=== PATIENT | male | born 1995 | race Two or more races ===

== ENCOUNTER 2016-10-15 08:29 | Day surgery (SDC) | payer MEDICAID ==
[~2016-10-15 08:29] MED LIST: ceFAZolin 2 GM in SODIUM CHLORIDE 0.9% 100 ML IVPB ONE
[2016-10-15] MEDS ORDERED: ONDANSETRON 4 MG/2 ML VIAL IVP ONE (08:45)
[2016-10-15] MEDS ORDERED: LACTATED RINGERS 1,000 ML IV SCH (08:45)
[2016-10-15] MEDS ORDERED: MIDAZOLAM 2 MG/2 ML VIAL IV PRN (08:45)
[2016-10-15] MEDS ORDERED: DEXAMETHASONE SOD PHOSPHATE 10 MG/ML 1 ML VIAL IV ONE (08:45)
[2016-10-15] MEDS ORDERED: LIDOCAINE 1% 20 ML VIAL (10MG/ML) FOR IV START SQ ONE (08:55)
[2016-10-15] MEDS ORDERED: ceFAZolin 1,000 MG VIAL ONE (09:26)
[2016-10-15] MEDS ORDERED: fentaNYL (PF) 50 MCG/ML 2 ML AMP ONE (09:26)
[2016-10-15] MEDS ORDERED: PROPOFOL 10 MG/ML 20 ML VIAL IV ONE (09:26)
[2016-10-15] MEDS ORDERED: SODIUM CHLORIDE 0.9% 100 ML BAG ONE (09:26)
[2016-10-15] MEDS ORDERED: MIDAZOLAM 2 MG/2 ML VIAL ONE (09:26)
[2016-10-15 10:12] VITALS: TEMP 97.2
--- NOTE | 2016-10-15 10:13 | P.OP ---
Date of Procedure: 10/15/16 Preoperative Diagnosis: Bulbous Urethral Stricture Postoperative Diagnosis: Same Procedure(s) Performed: Cystoscopy, Direct Visual Internal Ureterotomy (DVIU) Anesthesia: DAVIN Surgeon: Miguel Bronson Estimated Blood Loss (ml): 5 IV fluids (ml): 600 Pathology: none sent Condition: stable Disposition: PACU Indications for Procedure: He is a 21-year-old male with a several year history of obstructive voiding symptoms. Physical examination is unremarkable. The postvoid residual is 100 cc. Cystoscopy confirms the presence of a bulbous urethral stricture. I reviewed alternative treatment options with him in detail. I explained that a urethroplasty is the most definitive way to treat a stricture, and I suggested that a retrograde urethrogram be performed to better delineate the stricture. However, he would be unable to be off of work long enough to allow recovery from a urethroplasty. In view of this, he has elected to undergo a DVIU. He is aware of the risk of a recurrent stricture, and the fact that a DVIU can lengthen the stricture. Operative Findings: Bulbous urethral stricture, measuring approximately 2 cm in length. Description of Procedure: The patient was taken to the operating room and placed in the dorsolithotomy position, with his legs supported in Constantine stirrups. The external genitalia was prepped and draped sterilely. The 0 lens was used to advance the visual urethrotome into the urethra. A stricture was encountered within the bulbous urethra, measuring approximately 6 Gambian in caliber. The length of the stricture was approximately 2 cm. Using the straight blade, the stricture was incised at the 12 o'clock position. The incision was carried through the full- thickness of the stricture. It was then possible to advance the visual urethrotome into the bladder. Cystoscopy was performed. The 30 lens was used to introduce the 19-Gambian start cystoscopic sheath through the urethra and into the bladder under direct vision. The prostate revealed a bilobar configuration. The bladder was examined in its entirety. Both ureteral orifices were of normal anatomic location and configuration, and clear urine effluxed from both. No tumors or foreign bodies were seen. The cystoscope was removed, and an 18-Gambian Alcocer catheter was placed. The return was clear. The patient tolerated the procedure well was taken to the recovery room in stable condition.
[2016-10-15] MEDS ORDERED: LACTATED RINGERS 1,000 ML IV ONE (10:41)
[2016-10-15] MEDS: HYDROmorphone 1 MG/ML 1 ML SYRINGE IVP PRN ×2 (10:49→10:56)
[2016-10-15] MEDS ORDERED: KETOROLAC 30 MG/ML 1 ML VIAL IVP ONE (10:52)
[2016-10-15 11:37] VITALS: RESP 18
[2016-10-15 11:57] VITALS: BP 115/74; PULSE 58
== END 2016-10-15 12:20 | disposition home or self-care (01) ==
LOC: OR 08:29
PROVIDERS: ATTEND Urology
DX: N35.9 Urethral stricture, unspecified (principal); Z91.030 Bee allergy status; Z91.048 Other nonmedicinal substance allergy status; Z88.2 Allergy status to sulfonamides; Z87.891 Personal history of nicotine dependence; Z80.42 Family history of malignant neoplasm of prostate
CPT/HCPCS: 87086; 52276; J2250; J1100; J2405; J0690; J3010; J1885; J1170; J2704

== ENCOUNTER 2016-11-27 14:44 | Emergency (ER) | payer MEDICAID ==
[2016-11-27 14:49] VITALS: BP 132/86; PULSE 66; RESP 17; TEMP 99
--- NOTE | 2016-11-27 15:39 | ED ---
General Adult HPI - General Chief complaint: Wound/Laceration Stated complaint: finger lac Time Seen by Provider: 11/27/16 15:34 Source: patient, RN notes reviewed Mode of arrival: ambulatory Limitations: no limitations - History of Present Illness Initial comments: Is a 21-year-old male presents with a laceration to the right fifth digit. Patient states around 11 AM this morning he was washing the dishes and cut his hand on a broken plate. Patient is up-to-date on his tetanus shot. Patient has no trouble moving the involved finger. Patient denies any numbness/ weakness or tingling. Patient is not on any anticoagulants. Patient denies any recent fever, chills, shortness breath, chest pain, abdominal pain, nausea/ vomiting/diarrhea, back pain, hematuria, headache, or visual changes, or any other complaints. - Related Data Previous Rx's Medication Instructions Recorded Cephalexin [Keflex] 500 mg PO Q12HR 5 Days 11/27/16 Allergies Allergy/AdvReac Type Severity Reaction Status Date / Time Sulfa (Sulfonamide Allergy Unknown Verified 11/27/16 14:46 Antibiotics) venom-honey bee Allergy Anaphylaxis Verified 11/27/16 14:46 [bee venom (honey bee)] Review of Systems ROS Statement: Those systems with pertinent positive or pertinent negative responses have been documented in the HPI. ROS Other: All systems not noted in ROS Statement are negative. Past Medical History Additional Past Medical History / Comment(s): anemic History of Any Multi-Drug Resistant Organisms: None Reported Past Surgical History: No Surgical Hx Reported Past Psychological History: No Psychological Hx Reported Smoking Status: Never smoker Past Alcohol Use History: None Reported Past Drug Use History: None Reported General Exam - General Exam Comments Initial Comments: General: The patient is awake and alert, in no distress, and does not appear acutely ill. Neck: The neck is supple, there is no tenderness or JVD. Cardiovascular: There is a regular rate and rhythm. No murmur, rub or gallop is appreciated. Respiratory: Lungs are clear to auscultation, respirations are non-labored, breath sounds are equal. No wheezes, stridor, rales, or rhonchi. Musculoskeletal: There is an approximately 2.5 cm laceration to the lateral aspect of the fifth digit of the right hand. There is no active bleeding, swelling or ecchymosis. This area is tender to palpation but patient has full range of motion motion, strength 5/5 and Sensation intact. Radial pulses are 2 + bilaterally. Capillary refill is normal at less than 2 seconds. Neurological: A&O x 3. CN II-XII intact, There are no obvious motor or sensory deficits. Coordination appears grossly intact. Speech is normal. Skin: There is an approximately 2.5; laceration to the lateral aspect of the fifth digit of the right hand. Skin is warm and dry. Psychiatric: Normal mood and affect. Limitations: no limitations Course Vital Signs 11/27/16 14:46 Temperature 99.0 F Pulse Rate 66 Respiratory 17 Rate Blood Pressure 132/86 O2 Sat by Pulse 100 Oximetry Procedures - Procedures Initial comment: The skin was anesthetized with 1% lidocaine. The laceration was then cleansed and irrigated with normal saline. The wound was inspected, and there was no evidence of injury to deep structures. No foreign body was noted in the wound. A total of 9 skin sutures were placed utilizing 5-0 Ethilon. Laceration is approx 2.5 cm Medical Decision Making - Medical Decision Making This is a 21-year-old male presents with a laceration to the right hand since 11 AM. On physical exam There is an approximately 2.5 cm laceration to the lateral aspect of the fifth digit of the right hand. There is no active bleeding, swelling or ecchymosis. This area is tender to palpation but patient has full range of motion motion, strength 5/5 and Sensation intact. Radial pulses are 2+ bilaterally. Capillary refill is normal at less than 2 seconds. An x-ray of the right hand was done and reviewed showing: There is no acute fracture dislocation of the right hand. Reported by Dr. Velasquez. Patient is up- to-date on his tetanus shot. The skin was anesthetized with 1% lidocaine. The laceration was then cleansed and irrigated with normal saline. The wound was inspected, and there was no evidence of injury to deep structures. No foreign body was noted in the wound. A total of 9 skin sutures were placed utilizing 5-0 Ethilon. Laceration is approx 2.5 cm. I discussed that sutures need to be removed in 8-10 days. I discussed that rinsing and showering are okay but to avoid submerging the wound in water. Discussed [id number] Tylenol and Motrin as needed for any pain. I discussed use of topical Neosporin. I discussed return parameters and signs of infection. Discussed that patient should finish entire course of antibiotics. Discussed that patient should use finger splint while at work to protect the healing laceration. Discussed keeping the laceration covered at work. Discussed that patient should follow up with PCP in one to 2 days or return to the [facility] for any worsening symptoms or for any further concerns. Patient was receptive to this plan and patient will be discharged home. Disposition Clinical Impression: Laceration Disposition: HOME SELF-CARE Condition: Good Instructions: Care For Your Stitches (ED), Laceration (ED) Additional Instructions: Sutures need to be removed in 8-10 days. Rinsing and showering are okay but avoid submerging the wound in water. Please use [id number] Tylenol and Motrin as needed for any pain. Please use finger splint to protect the wound. Please keep wound covered completely at work. May use Neosporin to the area. Please finish the entire course of antibiotics. I discussed return parameters and signs of infection. Prescriptions: Cephalexin [Keflex] 500 mg PO Q12HR 5 Days Referrals: None,Stated [Primary Care Provider] - 1-2 days John Rowan MD [REFERRING] - 1-2 days Madina Cabral MD [STAFF PHYSICIAN] - 1-2 days Time of Disposition: 16:25
--- NOTE | 2016-11-27 15:50 | XR ---
EXAMINATION TYPE: XR hand complete RT DATE OF EXAM: 11/27/2016 3:45 PM CLINICAL HISTORY: Right hand laceration injury fifth finger with pain. TECHNIQUE: Frontal, lateral and oblique images of the right hand are obtained. COMPARISON: None. FINDINGS: There is no acute fracture/dislocation evident in the right hand. The joint spaces in the right hand appear within normal limits. The overlying soft tissue appears unremarkable without radio dense foreign body identified. Lucency consistent with laceration is seen along the ulnar dorsal aspe ct level of distal fifth proximal phalanx. IMPRESSION: There is no acute fracture or dislocation in the right hand.
[2016-11-27] MEDS ORDERED: IBUPROFEN 400 MG TAB PO STA (16:21)
== END 2016-11-27 16:37 | disposition home or self-care (01) ==
LOC: EC 14:44
DX: S61.216A Laceration without foreign body of right little finger without damage to nail, initial encounter (principal); W25.XXXA Contact with sharp glass, initial encounter; Y93.G1 Activity, food preparation and clean up; Z88.2 Allergy status to sulfonamides
CPT/HCPCS: 12001; 99283

== ENCOUNTER 2020-04-17 03:33 | Inpatient (IN) | payer MEDICAID, OTHER ==
[2020-04-17] MEDS ORDERED: diphenhydrAMINE 50 MG/ML 1 ML VIAL IM STA (03:45)
[2020-04-17] MEDS ORDERED: LORazepam 2 MG/ML INJ IM STA (03:45)
[2020-04-17] MEDS ORDERED: HALOPERIDOL LACTATE 5 MG/ML 1 ML VIAL IM STA (03:45)
--- NOTE | 2020-04-17 03:56 | ED ---
General Adult HPI <John Gamez - Last Filed: 04/17/20 13:04> - General Source: patient Mode of arrival: ambulatory Limitations: no limitations <Missy Lopez - Last Filed: 04/17/20 22:04> - General Chief complaint: Psychiatric Symptoms Stated complaint: Mental Health Time Seen by Provider: 04/17/20 03:42 - History of Present Illness Initial comments: Isidro is a previously healthy 24-year-old male who is brought to the ER today by his brother for evaluation of acute psychosis. Patient denies any medical history Brother bedside denies any medical history. Patient reports that 3 days ago he was at a festival and somebody offered him what he believed to be Shayy however brothers concerned he may be LSD or amphetamines. He reports his brother has not slept in 3 days he's been agitated he is very paranoid. The patient believes that his brother is though he is in the room talking to him. He believes somebody is out to kill him. (Missy Lopez) - Related Data Home Medications Medication Instructions Recorded Confirmed No Known Home Medications 04/17/20 04/17/20 Allergies Allergy/AdvReac Type Severity Reaction Status Date / Time Sulfa (Sulfonamide Allergy Unknown Verified 04/17/20 12:23 Antibiotics) venom-honey bee Allergy Anaphylaxis Verified 04/17/20 12:23 [bee venom (honey bee)] Review of Systems ROS Other: All systems not noted in ROS Statement are negative. <John Gamez - Last Filed: 04/17/20 13:04> ROS Other: All systems not noted in ROS Statement are negative. <Missy Lopez - Last Filed: 04/17/20 22:04> ROS Statement: Those systems with pertinent positive or pertinent negative responses have been documented in the HPI. Past Medical History Additional Past Medical History / Comment(s): anemic History of Any Multi-Drug Resistant Organisms: None Reported Past Surgical History: No Surgical Hx Reported Past Psychological History: No Psychological Hx Reported Smoking Status: Never smoker Past Alcohol Use History: None Reported Past Drug Use History: None Reported - Past Family History Mother Family Medical History: Diabetes Mellitus <Missy Lopez - Last Filed: 04/17/20 22:04> General Exam Limitations: no limitations <Missy Lopez - Last Filed: 04/17/20 22:04> - General Exam Comments Initial Comments: Physical Exam GENERAL: Paranoid, pacing the department HENT: Normocephalic, Atraumatic. EYES: PERRL, EOMI PULMONARY: Unlabored respirations. CARDIOVASCULAR: RRR Warm and well perfused extremities ABDOMEN: Non-distended SKIN: No rashes or bruising : Deferred NEUROLOGIC: Alert, oriented to self only Pressured speech MUSCULOSKELETAL: Moving all extremities with no apparent injury PSYCHIATRIC: Acutely psychotic Paranoid (Missy Lopez) Course Vital Signs 04/17/20 04/17/20 04/17/20 03:36 06:17 13:00 Temperature 98.3 F 98.0 F Pulse Rate 105 H 58 L 66 Respiratory 18 16 18 Rate Blood Pressure 168/85 124/72 O2 Sat by Pulse 97 98 98 Oximetry Medical Decision Making - Lab Data Result diagrams: 04/17/20 04:38 04/17/20 04:38 <John Gamez - Last Filed: 04/17/20 13:04> - Lab Data Result diagrams: 04/17/20 04:38 04/17/20 04:38 <Missy Lopez - Last Filed: 04/17/20 22:04> - Medical Decision Making Patient evaluate by EPS. Because recommends inpatient admission. Certification completed. Patient admitted to inpatient psychiatry. (John Gamez) - Lab Data Lab Results 04/17/20 04/17/20 04/17/20 Range/Units 04:38 04:38 09:35 WBC 10.2 (3.8-10.6) k/uL RBC 4.60 (4.30-5.90) m/uL Hgb 13.3 (13.0-17.5) gm/dL Hct 39.7 (39.0-53.0) % MCV 86.3 (80.0-100.0) fL MCH 28.9 (25.0-35.0) pg MCHC 33.5 (31.0-37.0) g/dL RDW 13.0 (11.5-15.5) % Plt Count 211 (150-450) k/uL Neutrophils % 83 % Lymphocytes % 8 % Monocytes % 6 % Eosinophils % 1 % Basophils % 0 % Neutrophils # 8.5 H (1.3-7.7) k/uL Lymphocytes # 0.9 L (1.0-4.8) k/uL Monocytes # 0.6 (0-1.0) k/uL Eosinophils # 0.1 (0-0.7) k/uL Basophils # 0.0 (0-0.2) k/uL Sodium 137 (137-145) mmol/L Potassium 3.8 (3.5-5.1) mmol/L Chloride 104 (98-107) mmol/L Carbon Dioxide 24 (22-30) mmol/L Anion Gap 9 mmol/L BUN 10 (9-20) mg/dL Creatinine 1.14 (0.66-1.25) mg/dL Est GFR (CKD-EPI)AfAm >90 (>60 ml/min/1.73 sqM) Est GFR (CKD-EPI)NonAf >90 (>60 ml/min/1.73 sqM) Glucose 98 (74-99) mg/dL Calcium 9.5 (8.4-10.2) mg/dL Total Bilirubin 0.7 (0.2-1.3) mg/dL AST 52 (17-59) U/L ALT 39 (4-49) U/L Alkaline Phosphatase 49 (38-126) U/L Total Protein 7.1 (6.3-8.2) g/dL Albumin 4.6 (3.5-5.0) g/dL Salicylates <1.0 mg/dL Urine Opiates Screen Not Detected (NotDetected) Ur Oxycodone Screen Not Detected (NotDetected) Urine Methadone Screen Not Detected (NotDetected) Ur Propoxyphene Screen Not Detected (NotDetected) Acetaminophen <10.0 ug/mL Ur Barbiturates Screen Not Detected (NotDetected) U Tricyclic Antidepress Not Detected (NotDetected) Ur Phencyclidine Scrn Not Detected (NotDetected) Ur Amphetamines Screen Not Detected (NotDetected) U Methamphetamines Scrn Not Detected (NotDetected) U Benzodiazepines Scrn Not Detected (NotDetected) Urine Cocaine Screen Not Detected (NotDetected) U Marijuana (THC) Screen Detected H (NotDetected) Serum Alcohol <10 mg/dL Disposition Decision Time: 13:04 <John Gamez - Last Filed: 04/17/20 13:04> <Missy Lopez - Last Filed: 04/17/20 22:04> Clinical Impression: Psychosis Disposition: ADMITTED IP TO THIS HOSP Condition: Fair
[2020-04-17 04:47] LABS: Basophils % (A) 0 %; Eosinophils % (A) 1 %; HCT 39.7 % (39.0-53.0); HGB 13.3 gm/dL (13.0-17.5); Lymphocytes % (A) 8 %; MCH 28.9 pg (25.0-35.0); MCHC 33.5 g/dL (31.0-37.0); MCV 86.3 fL (80.0-100.0); Mean Platelet Volume 6.8; Monocytes % (A) 6 %; Neutrophils % (A) 83 %; Platelet Count 211 k/uL (150-450); WBC 10.2 k/uL (3.8-10.6)
[2020-04-17 04:48] LABS: Eosinophils # (A) 0.1 k/uL (0-0.7); Lymphocytes # (A) 0.9 k/uL (1.0-4.8); Monocytes # (A) 0.6 k/uL (0-1.0); Neutrophils # (A) 8.5 k/uL (1.3-7.7)
[2020-04-17 04:58] LABS: ALT 39 U/L (4-49); AST 52 U/L (17-59); Acetaminophen <10.0 ug/mL; African American GFR (CKD) >90 (>60 ml/min/1.73 sqM); Albumin 4.6 g/dL (3.5-5.0); Alcohol <10 mg/dL; Alkaline Phosphatase 49 U/L (38-126); Anion Gap 9 mmol/L; Blood Urea Nitrogen 10 mg/dL (9-20); Calcium 9.5 mg/dL (8.4-10.2); Carbon Dioxide 24 mmol/L (22-30); Chloride 104 mmol/L (98-107); Glucose 98 mg/dL (74-99); Non-African American GFR(CKD) >90 (>60 ml/min/1.73 sqM); Potassium 3.8 mmol/L (3.5-5.1); Salicylate <1.0 mg/dL; Sodium 137 mmol/L (137-145); Total Bilirubin 0.7 mg/dL (0.2-1.3); Total Protein 7.1 g/dL (6.3-8.2)
[2020-04-17] MEDS ORDERED: MAG HYDROX/AL HYDROX/SIMETH 30 ML CUP PO PRN (13:24)
[2020-04-17] MEDS ORDERED: ACETAMINOPHEN TAB 325 MG TAB ONE (13:24)
[2020-04-17] MEDS ORDERED: LORazepam 1 MG TAB ONE (13:24)
[2020-04-17] MEDS ORDERED: MAG HYDROX/AL HYDROX/SIMETH 30 ML CUP ONE (13:24)
[2020-04-17] MEDS ORDERED: ZIPRASIDONE 20 MG VIAL IM PRN (13:24)
[2020-04-17] MEDS ORDERED: MAGNESIUM HYDROXIDE 2,400 MG/10 ML CUP ONE (13:24)
[2020-04-17] MEDS ORDERED: ACETAMINOPHEN TAB 325 MG TAB PO PRN (13:24)
[2020-04-17] MEDS ORDERED: ZIPRASIDONE 20 MG VIAL IM ONE (13:24)
[2020-04-17] MEDS ORDERED: LORazepam 2 MG/ML INJ ONE (13:24)
[2020-04-17] MEDS ORDERED: MAGNESIUM HYDROXIDE 2,400 MG/10 ML CUP PO PRN (13:24)
[2020-04-17] MEDS ORDERED: LORazepam 2 MG/ML INJ IM PRN (13:26)
[2020-04-17 14:16] LABS: Amphetamine Screen,Urine Not Detected (NotDetected); Barbiturate Screen,Urine Not Detected (NotDetected); Benzodiazepines Screen,Urine Not Detected (NotDetected); Cocaine Screen,Urine Not Detected (NotDetected); Methadone Screen, Urine Not Detected (NotDetected); Opiate Screen,Urine Not Detected (NotDetected); Oxycodone Screen, Urine Not Detected (NotDetected); Phencyclidine Screen,Urine Not Detected (NotDetected); Tricyclic Antidepressant,Urine Not Detected (NotDetected); Urn Cannabinoid Scrn Detected (NotDetected)
--- NOTE | 2020-04-17 20:39 | P.HPMEDMHU ---
History of Present Illness H&P Date: 04/17/20 Chief Complaint: hallucinations Patient is a 24-year-old -[place]ish male with a past medical history of urethral strictures status post surgical procedure in 2016, prior anemia, and prior low platelets who presented to the hospital at direction of his brother secondary to hallucinations and paranoia. Patient seen and examined. He states he is feeling fine currently. He denies any chest pain, shortness breath, nausea, or vomiting. He is concerned he might have a urinary tract infection if he has a history of them in the past and he believes they may be playing into his mental fogginess-he states he always has some dribbling and difficulty with stream secondary to his urethral stricture. He denies any current unusual dysuria, cloudy urine, or malodorous urine. He is unsure how he got the bruise over his left eye. He does state that he uses marijuana daily and doesn't take any other street drugs on purpose. However on his petition his brother stated he took what they thought was probably but may have been LSD. Review of Systems Pertinent positives and negatives as discussed in HPI, a complete review of systems was performed and all other systems are negative. Past Medical History Additional Past Medical History / Comment(s): Urethral stricture, history of a nemia, history of thrombocytopenia History of Any Multi-Drug Resistant Organisms: None Reported Additional Past Surgical History / Comment(s): Urethral stricture repair Past Psychological History: No Psychological Hx Reported Smoking Status: Current every day smoker Past Alcohol Use History: Occasional Past Drug Use History: Marijuana - Past Family History Mother Family Medical History: Diabetes Mellitus Medications and Allergies Home Medications Medication Instructions Recorded Confirmed Type No Known Home Medications 04/17/20 04/17/20 History Allergies Allergy/AdvReac Type Severity Reaction Status Date / Time Sulfa (Sulfonamide Allergy Unknown Verified 04/17/20 12:23 Antibiotics) venom-honey bee Allergy Anaphylaxis Verified 04/17/20 12:23 [bee venom (honey bee)] Physical Exam Osteopathic Statement: *. No significant issues noted on an osteopathic structural exam other than those noted in the History and Physical/Consult. Vitals: Vital Signs Temp Pulse Pulse Resp BP BP Pulse Ox 04/17/20 14:18 98.4 F 64 16 142/81 100 04/17/20 13:00 98.0 F 66 18 124/72 98 04/17/20 06:17 58 L 16 98 04/17/20 03:36 98.3 F 105 H 18 168/85 97 Intake and Output 04/17/20 04/17/20 04/17/20 06:59 14:59 22:59 Other: Weight 77.111 kg 83.325 kg General: non toxic, no distress, appears at stated age, normal weight Derm: no unusual rashes/lesions ecchymoses over left orbit, warm, dry Head: atraumatic, normocephalic, symmetric Eyes: EOMI, no lid lag, anicteric sclera, pupils equal round reactive to light ENT: Nose and ears atraumatic, no thrush, no pharyngeal erythema Neck: No thyromegaly, no cervical lymphadenopathy, trachea midline, supple Mouth: no lip lesion, mucus membranes moist Cardiovascular: S1S2 reg, no murmur, positive posterior tibial pulse bilateral, no edema, capillary refill less than 2 seconds Lungs: CTA bilateral, no rhonchi, no rales , no accessory muscle use Abdominal: soft, nontender to palpation, no guarding, no appreciable organomegaly, normal bowel sounds Ext: no gross muscle atrophy, muscle strength 5 out of 5 in all 4 extremities grossly, no contractures, Neuro: CN II-XI grossly intact, light touch intact all 4 extremities, finger to nose within normal limits, Psych: Alert, oriented, appropriate affect Cranial Nerve Examination - Cranial Nerves Cranial Nerve II- Optic: Intact Cranial Nerve III- Oculomotor: Intact Cranial Nerve IV- Trochlear: Intact Cranial Nerve V- Trigeminal: Intact Cranial Nerve - Abducens: Intact Cranial Nerve VII- Facial: Intact Cranial Nerve VIII- Auditory: Intact Cranial Nerve IX- Glossopharyngeal: Intact Cranial Nerve X- Vagus: Intact Cranial Nerve XI- Accessory: Intact Cranial Nerve XII- Hypoglossal: Intact Results CBC & Chem 7: 04/17/20 04:38 04/17/20 04:38 Labs: Abnormal Lab Results - Last 24 Hours (Table) 04/17/20 04/17/20 Range/Units 04:38 09:35 Neutrophils # 8.5 H (1.3-7.7) k/uL Lymphocytes # 0.9 L (1.0-4.8) k/uL U Marijuana (THC) Screen Detected H (NotDetected) Assessment and Plan Assessment: Change in urine stream, concern for recurrence of urethral stricture -Check urinalysis -Outpatient referrals [facility] to see patient regarding insurance -If continues consider urology consult Tobacco abuse -Cessation -Nicotine replacement THC abuse - cessation Paranoia - your psych management
[2020-04-18] MEDS: NICOTINE 14MG/24HR PATCH TRANSDERM SCH ×2 (06:59→09:14)
[2020-04-18 07:39] LABS: Glucose,Whole Blood 85 mg/dL (75-99)
[2020-04-18] MEDS: ARIPiprazole 5 MG TAB PO SCH (10:26)
--- NOTE | 2020-04-18 15:21 | HP ---
HISTORY AND PHYSICAL DATE OF SERVICE: 04/18/2020 IDENTIFYING INFORMATION: Patient 24-year-old , single male who is currently living with his mother and older brother. Patient is unemployed. HISTORY OF PRESENT ILLNESS: I reviewed the medical record and I did interview the patient. Patient was cooperative with the interview. Patient stated that he has been confused for the last 4 days and "I was trying to meditate and trying to figure out my life for the last couple of days." He stated that yesterday he was so confused to the point that he thinks that he would try to kill himself 50 times. Also, he said that he was falling down he has black eye on his left eye. Today he denied any auditory hallucination, but he stated that he is very paranoid and suspicious and thinking that there is people threatening his phone. This patient talked in detail about his ability to do business. 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 Patient stated that he did use LSD last weekend and since then he has been more confused than usual. Patient denied that he has any suicidal ideation at this moment. Also, he denied any suicide intent or plan at this moment. Patient was very vague when I did ask him how did he try to kill himself more than 50 times over the last couple of days. He said "it is ." PAST PSYCHIATRIC HISTORY: Patient denied any past psychiatric hospitalization or outpatient therapy. PAST MEDICAL HISTORY: Patient had surgery for urethral stricture in 2016. Patient has history of anemia, history of thrombocytopenia. His urine drug screen at the arrival of the ER was positive for marijuana. ALLERGY: He is allergic to SULFA and VENOM HONEY BEE. SUBSTANCE USE HISTORY: 1. LSD. He started using LSD at age 17 and according to him at least once a week "to be able to produce and play music." His last use was last weekend. 2. Alcohol. He started drinking at age 17. He was very vague about how much he has been consuming. According to him, he can drink up to a fifth of whiskey. He last used it was last weekend. He had 6 beers. He denied any history of withdrawal with seizure. 3. Nicotine. He does smoke between 5-6 cigarettes a day. FAMILY HISTORY OF PSYCHIATRIC AND SUBSTANCE ABUSE HISTORY: Patient denied. SOCIAL HISTORY: The patient was born in [place]. He has 1 older brother and 2 half siblings. He moved from [place] to [place] at age 6 and he lived in [place] until age 13 and then he moved to [place] with his mother and his brother, graduated from high school. 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 Currently, he is not in any relationship and he does not have any children. He denies any history. He denied any legal problems. MENTAL STATUS EXAMINATION: Patient appears his stated age. He was cooperative. He put his shaffer on his head throughout the interview. He has good eye contact. He was sitting without any agitation at times, smiling and laughing. His speech was spontaneous, increase in productivity with some looseness of association. Mood and affect, he stated that his mood is "I am very anxious, trying to figure it out why I lost a couple of days in my life." Affect is inappropriate at times. Patient denied having any suicidal or homicidal ideation, intent, or plan. Today, patient denied any visual or auditory hallucination. There is no evidence of delusional thought content, grandiose delusion, paranoia, suspicious that someone is tracking his phone. His thought process is tangential. MEMORY AND CONCENTRATION: He was alert, oriented x3. His memory is grossly intact. JUDGMENT AND INSIGHT: Poor, impulsive. STRENGTHS: Patient has very good support system. His mother and his brother, weakness, unemployment, drug use, poor judgment. Intellectual function average. IMPRESSION: 1. Psychosis, unspecified. 2. Hallucinogenic use disorder, alcohol use disorder, cannabis use disorder, nicotine dependence. PLAN OF TREATMENT: 1. Patient is admitted under voluntary admission to mental health unit for stabilization of his psychiatric symptoms and safety. 2. Medication. I will start the patient on Abilify 5 mg and will titrate this does to resolve his psychosis. 3. Ativan done p.r.n. for agitation. 4. Patient will be counseled on substance abuse. 5. Internal Medicine consult to perform medical evaluation and physical. Will give him nicotine patch to replace his smoking. crop farm workers onboard for discharge planning and to gather more information from his mother. Encourage the patient to participate in group to work on his coping skills. Likely discharge in 3-4 days. MMODL / IJN: [id number] /
--- NOTE | 2020-04-18 17:06 | P.PN ---
Subjective Progress Note Date: 04/18/20 Principal diagnosis: psychosis History of the 24-year-old -Belgian female with a history of urethral stricture, past urinary tract infection, and chronic marijuana use who is currently in the mental health unit secondary psychosis. Patient states that he is still having difficulty urinating. He has difficulty controlling his stream and has frequent dribbling. He also reports some pain with urination. He has not had given a urine sample. During our conversation he still appears acutely paranoid. He believes everyone is inside his head and can hear his thoughts. He believes that the Abilify he received earlier today helped somewhat. He then goes on to recount the activity over the weekend. He thought he multiple times at his house, he was killing himself, LYDIA had tapped his phone, and that his brother was disappearing and reappearing. He is also very concerned that somebody at home is . Objective - Vital Signs Vital signs: Vital Signs Temp 97.9 F 04/18/20 06:44 Pulse 72 04/18/20 06:44 Resp 18 04/18/20 06:44 BP 151/80 04/18/20 06:44 Pulse Ox 100 04/18/20 06:44 Intake & Output 04/17/20 04/18/20 04/18/20 18:59 06:59 18:59 Weight 83.325 kg - Exam General: non toxic, no distress, appears at stated age Derm: warm, dry Head: atraumatic, normocephalic, symmetric Eyes: EOMI, no lid lag, anicteric sclera Mouth: no lip lesion, mucus membranes moist Cardiovascular: S1S2 reg, no murmur, positive posterior tibial pulse bilateral, Lungs: CTA bilateral, no rhonchi, no rales , no accessory muscle use Psych: Awake, agitation, confusion, hallucinations - Labs CBC & Chem 7: 04/17/20 04:38 04/17/20 04:38 Labs: Abnormal Lab Results - Last 24 Hours (Table) 04/17/20 Range/Units 09:35 U Marijuana (THC) Screen Detected H (NotDetected) Assessment and Plan Assessment: Change in urine stream, concern for recurrence of urethral stricture -UA reordered due to computer down time -Outpatient referrals [facility] to see patient regarding insurance -If continues consider urology consult Tobacco abuse -Cessation -Nicotine replacement THC abuse - cessation Paranoia - your psych management - check TSH Certification completed
[2020-04-18] MEDS: LORazepam 1 MG TAB PO PRN (17:29)
[2020-04-18 17:45] LABS: Appearance,Urine Clear (Clear); Bilirubin,Urine Negative (Negative); Blood,Urine Negative (Negative); Color,Urine Yellow; Glucose,Urine (UA) Negative (Negative); Ketones,Urine Negative (Negative); Leukocyte Esterase,Urine Negative (Negative); Nitrite,Urine Negative (Negative); PH, Urine 6.5 (5.0-8.0); Protein,Urine Negative (Negative); Specific Gravity,Urine 1.012 (1.001-1.035); Urobilinogen,Urine <2.0 mg/dL (<2.0)
[2020-04-18 20:18] LABS: Glucose,Whole Blood 88 mg/dL (75-99)
[2020-04-19 07:48] LABS: Glucose,Whole Blood 88 mg/dL (75-99)
[2020-04-19] MEDS: NICOTINE 14MG/24HR PATCH TRANSDERM SCH (08:06)
[2020-04-19] MEDS: ARIPiprazole 5 MG TAB PO SCH (08:06)
--- NOTE | 2020-04-19 11:57 | P.PN ---
Progress Note - Text Interval history: The patient is found in the [facility] he follows me to an interview room. I did review the psychiatric evaluation as well as the petition. The patient was interviewed. He presented with symptoms of acute psychosis and thought disorganization. Staff report that the patient has been demonstrating that during his group participation. He was started on Abilify yesterday at 5 mg he is agreeable to having me titrate the dose although he lacks insight into his symptoms. He states he would like to be discharged he does not wish to stay here voluntarily. Mental status exam: The patient is a tall -German male appearing his stated age. He is dressed in his own clothing he is wearing a coat it sweatshir t with the shaffer up. Eye contact is good speech is fluent spontaneous nonpressured he is verbose. I do need to interrupt him in order to continue the conversation. He describes paranoid persecutory thinking. He states family members are likely trying to subconsciously manipulative him by saying things to him while he sleeps. He talks about trip wires being in people's homes link to explosive from [employer] 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 He reports having "suicidal tendencies" but does not describe that further. Reports no thoughts of harming others. He states that he is concerned that others are trying to kill him. He reports that he has been waking up and there has been a scratch on his arm with a new one being added each day and he expects it will spell KKK. Plan: The patient demonstrates acute symptoms of psychosis. This could be an emerging schizophrenia or could be related to recent use of LSD he states within the last week. We will continue the Abilify but titrate the dose to 10 mg daily I expect it will need to be titrated further. Vital signs reviewed. He is encouraged to fully participate in the milieu. Due to him not wanting to stay here voluntarily I will complete a second clinical certificate.
[2020-04-19] MEDS: LORazepam 1 MG TAB PO PRN (22:49)
[2020-04-20 07:45] LABS: Glucose,Whole Blood 99 mg/dL (75-99)
[2020-04-20] MEDS: NICOTINE 14MG/24HR PATCH TRANSDERM SCH (08:33)
[2020-04-20] MEDS: ARIPiprazole 10 MG TAB PO SCH (08:34)
[2020-04-20] MEDS: LORazepam 1 MG TAB PO PRN ×2 (08:34→21:07)
--- NOTE | 2020-04-20 17:26 | P.PN ---
Progress Note - Text Progress Note Date: 04/20/20 Subjective: Patient was seen today as a cross coverage for Dr. Wisdom. The patient was evaluated, chart reviewed, case discussed with the treatment team. Patient reported good sleep, and according to chart review patient slept about 8 hours last night. Appetite was reported as "fair ". Patient has been going to many groups and other unit activities. The patient is compliant with his medications and denies any adverse reactions. Patient reports feeling stable emotionally, and he denies depression, anxiety, or severe mood swings. He denies any suicidal or homicidal thoughts, and he denies any hallucinations, paranoid ideation or delusions. No manic symptoms have been reported or noticed. Patient requested to sign voluntary paper. Objective: Vitals has been reviewed. Mental status examination; Appearance: The patient appears stated age, adequately groomed and dressed, no specific features. Gait/posture: Normal gait, Normal arm swinging: No abnormal movements. Attitude and behavior: engaged, cooperative, eye contact. Motor activity: Normal psychomotor activity Speech: Normal rate, tone. Mood: "Fine" Affect: Constricted Thought form: goal-directed, linear, coherent. Thought content: Non-delusional, denies suicidal thoughts, denies homicidal thoughts, denies intentions or plans. Perception: Denies any auditory or visual hallucinations Attention: No impairment. Orientation: Patient patient was fully oriented to time place person and situation. Insight: Patient has fair insight about his psychiatric disorder. Judgment: Patient has fair judgment about his psychiatric treatment. Assessment: Schizophrenia. Patient showing stabilization of his symptoms Plan: Continue inpatient level of care due to need for further monitoring and discharge planning Precautions: Continue 15 minutes check for safety. Consider medical consultation if any acute medical issues arise. Provide the patient individual, group therapy, substance use disorder counseling to give better insight and learn coping skills. Continue follow-up with the patient daily to monitor progress of psychotic symptoms. Medications: Abilify for psychotic symptoms Discharge patient to OUTPATIENT services upon a stabilization
[2020-04-21] MEDS: ARIPiprazole 10 MG TAB PO SCH (10:05)
[2020-04-21] MEDS: NICOTINE 14MG/24HR PATCH TRANSDERM SCH (10:05)
[2020-04-21] MEDS: LORazepam 1 MG TAB PO PRN ×2 (10:06→21:32)
--- NOTE | 2020-04-21 15:26 | P.PN ---
Progress Note - Text Progress Note Date: 04/21/20 Subjective: Patient was seen today as a cross coverage for Dr. Wisdom. The patient was evaluated, chart reviewed, case discussed with the treatment team. Patient reports feeling stable emotionally and he denies feeling depressed, hopeless, or suicidal. No reports of manic or psychotic symptoms. Patient reports continued to have good sleep with average appetite. He continues to attend groups and other unit activities, and taking his medications as prescribed was no side effects reported. Patient requested discharge and was educated to discuss discharge plan with the primary team. He reports feeling frustrated about being hospitalized and last night had "weird dreams" about being in the hospital. Patient signed voluntary papers yesterday, and submitted intent to terminate treatment. Objective: Vitals has been reviewed. Mental status examination; Appearance: The patient appears stated age, adequately groomed and dressed, no specific features. Gait/posture: Normal gait, Normal arm swinging: No abnormal movements. Attitude and behavior: engaged, cooperative, eye contact. Motor activity: Normal psychomotor activity Speech: Normal rate, tone. Mood: "Fine" Affect: Constricted Thought form: goal-directed, linear, coherent. Thought content: Non-delusional, denies suicidal thoughts, denies homicidal thoughts, denies intentions or plans. Perception: Denies any auditory or visual hallucinations Attention: No impairment. Orientation: Patient patient was fully oriented to time place person and situation. Insight: Patient has fair insight about his psychiatric disorder. Judgment: Patient has fair judgment about his psychiatric treatment. Assessment: Schizophrenia. Patient showing stabilization of his symptoms Plan: Continue inpatient level of care due to need for further monitoring and discharge planning Precautions: Continue 15 minutes check for safety. Consider medical consultation if any acute medical issues arise. Provide the patient individual, group therapy, substance use disorder counseling to give better insight and learn coping skills. Continue follow-up with the patient daily to monitor progress of psychotic symptoms. Medications: Abilify for psychotic symptoms Discharge patient to OUTPATIENT services upon a stabilization
[2020-04-22] MEDS: ARIPiprazole 10 MG TAB PO SCH (08:30)
[2020-04-22] MEDS: LORazepam 1 MG TAB PO PRN ×2 (08:30→21:16)
[2020-04-22] MEDS: NICOTINE 14MG/24HR PATCH TRANSDERM SCH (08:30)
--- NOTE | 2020-04-22 11:22 | P.PN ---
Progress Note - Text Interval history: The patient is found seated on the floor by the front office developer. He follows me to an interview room. He indicates his mood is fine he states he's been planning all weekend for a discharge today. He reports having some difficulty sleeping staff reported he slept about 4 hours. He requests a medication to assist with sleep. Appetite stable. He reports he has been attending groups. Social work notes were reviewed and it appears that family perceive some improvement or still concerned that he has acute symptoms. Mental status exam: The patient is a tall -Puerto [place] male appearing his stated age. He is dressed in his own clothing hygiene grooming adequate. Eye contact is good. Speech is fluent and spontaneous nonpressured but he is intrusive at times. Initially affect was constricted but it did become more irritable as the session progressed. We actually had to interactions this morning. With the first he was irritable but the second interaction he was more cooperative. Insight into his presenting symptoms is impaired. He is less spontaneously describing psychotic thinking. He does report racing thoughts. He demonstrates no verbal or physical aggressiveness. He denies any suicidal or homicidal ideation. Plan: The patient continues to experience symptoms of psychosis and he is demonstrating some lability of affect. I will titrate the Abilify to 15 mg daily. Continue contacting his family if he allows. Vital signs reviewed. We will monitor him for safety and encourage participation in the milieu.
[2020-04-22 12:56] LABS: Glucose,Whole Blood 92 mg/dL (75-99)
[2020-04-22] MEDS: traZODone HCL 50 MG TAB PO SCH (21:14)
[2020-04-23] MEDS: NICOTINE 14MG/24HR PATCH TRANSDERM SCH (08:38)
[2020-04-23] MEDS: ARIPiprazole 15 MG TAB PO SCH (08:38)
[2020-04-23] MEDS: LORazepam 1 MG TAB PO PRN ×2 (09:24→17:28)
--- NOTE | 2020-04-23 11:05 | P.PN ---
Progress Note - Text Interval history: The patient is found in group he follows me to an interview room. He indicates his mood is improving. He reported feeling some anxiety earlier this morning and he took an Ativan. We discussed trialing Vistaril for anxiety. He feels the trazodone was effective for sleep staff recorded he slept 7 hours. Appetite is stable. He feels that racing thoughts or decreased he describes some paranoid thoughts were he feels he needs to "look over my shoulder". He doesn't identify any person or group that would be after him. he states that when he meets people he will hear a voice in his head that he presumes is their thought describing how they feel about him. Mental status exam: The patient is a tall -Maltese male appearing his stated age. He is dressed in his own clothing hygiene grooming adequate. Eye contact is appropriate speech is fluent spontaneous nonpressured. He describes some paranoid thinking. He reports some racing thoughts that seem to be improving. He demonstrates no verbal or physical aggressiveness. He denies having any suicidal thoughts today. He reports no homicidal ideation. Insight and judgment are slowly improving. Affect is constricted. He is oriented to person place and date. He is somewhat hyperactive as he seated in the chair. Plan: The patient will continue on his current psychotropic medication. He is encouraged to trial the Vistaril in place of Ativan. The Abilify was titrated to 15 mg today. We will monitor him for safety and encourage full participation in the milieu. He requires continued psychiatric hospitalization.
[2020-04-23] MEDS: hydrOXYzine pamoate 25 MG CAP PO PRN (12:55)
[2020-04-23] MEDS: traZODone HCL 50 MG TAB PO SCH (20:29)
[2020-04-24] MEDS: LORazepam 1 MG TAB PO PRN ×2 (06:13→14:18)
[2020-04-24] MEDS: ARIPiprazole 15 MG TAB PO SCH (09:18)
[2020-04-24] MEDS: NICOTINE 14MG/24HR PATCH TRANSDERM SCH (09:18)
--- NOTE | 2020-04-24 11:33 | P.PN ---
Progress Note - Text Interval history: The patient is found in the hallway he follows me to an interview room. He indicates his mood is improving. He reports that he sleeping well at night with the trazodone, appetite is stable. He has been attending groups. Staff report that he has been productive in groups and appropriately contributing. He anticipates his friend will visit this evening we discussed talking to that friend tomorrow for collateral information. The patient states that he does not wish to have his mother involved in his care and he plans on staying with his friend upon discharge. We reviewed his psychotropic medication he has no questions or concerns regarding the Abilify. He felt the Vistaril was sedating. Trazodone continues to be effective. Mental status exam: The patient is an alert Afro-Uz[place] male appearing his stated age. He is dressed in his own clothing hygiene grooming adequate. Eye contact is appropriate speech is fluent spontaneous nonpressured. He reports no suicidal or homicidal ideation intent or plan. He is endorsing no auditory or visual hallucinations or specific delusions. There is no observed evidence of psychosis hypomania or misael during today's visit. Insight and judgment are improving. He demonstrates no verbal or physical aggressiveness he demonstrates no involuntary repetitive movements. Affect is bright and euthymic in appearance. He readily engages in conversation and he is easily directed during the conversation. Plan: The patient will continue on his current medication he feels the Abilify is helpful we will continue the dose at 15 mg daily. We discussed discharge planning. He will have his friend visit this evening we hope to contact his friend tomorrow for collateral information and if the patient demonstrates continued stability/clinical improvement he may be appropriate for discharge in the next 1-2 days. Vital signs reviewed.
[2020-04-24] MEDS: hydrOXYzine pamoate 25 MG CAP PO PRN (16:06)
[2020-04-24] MEDS: traZODone HCL 50 MG TAB PO SCH (20:34)
[2020-04-25 06:33] VITALS: BP 126/54; PULSE 61; RESP 17
[2020-04-25] MEDS: NICOTINE 14MG/24HR PATCH TRANSDERM SCH (08:20)
[2020-04-25] MEDS: ARIPiprazole 15 MG TAB PO SCH (08:20)
[2020-04-25 09:17] VITALS: BMI 23.6
--- NOTE | 2020-04-25 11:28 | P.DS ---
Providers Date of admission: 04/17/20 13:02 Expected date of discharge: 04/25/20 Attending physician: Selena Cisneros MD Consults: 04/17/20 13:24 Consult Physician Routine Consulting Provider: Bri Lamas Consult Reason/Comments: H & P, medical managment Do you want consulting provider notified?: Yes Primary care physician: Stated None Patient Condition at Discharge: Fair Plan - Discharge Summary New Discharge Prescriptions: New ARIPiprazole [Abilify] 15 mg PO DAILY #30 tab traZODone HCL [Desyrel] 50 mg PO HS #30 tab Discharge Medication List ARIPiprazole [Abilify] 15 mg PO DAILY #30 tab 04/25/20 [Rx] traZODone HCL [Desyrel] 50 mg PO HS #30 tab 04/25/20 [Rx] Follow up Appointment(s)/Referral(s): None,Stated [Primary Care Provider] - 1-2 days [facility] - 1 Week Activity/Diet/Wound Care/Special Instructions: Activity and diet as tolerated. Avoid the use of street drugs and alcohol. Take all medications as prescribed. When you are in need of refills on your medications please contact your medical provider and/or outpatient psychiatrist to have this done. Please go to scheduled outpatient appointment for aftercare treatment. If symptoms return or become worse, call the crisis line at and/or go to the nearest emergency room for evaluation Discharge Disposition: HOME SELF-CARE
--- NOTE | 2020-04-25 11:47 | P.DS ---
Providers Date of admission: 04/17/20 13:02 Expected date of discharge: 04/25/20 Attending physician: Selena Cisneros MD Consults: 04/17/20 13:24 Consult Physician Routine Consulting Provider: Bri Lamas Consult Reason/Comments: H & P, medical managment Do you want consulting provider notified?: Yes Primary care physician: Stated None Patient Condition at Discharge: Fair Plan - Discharge Summary New Discharge Prescriptions: New ARIPiprazole [Abilify] 15 mg PO DAILY #30 tab traZODone HCL [Desyrel] 50 mg PO HS #30 tab Discharge Medication List ARIPiprazole [Abilify] 15 mg PO DAILY #30 tab 04/25/20 [Rx] traZODone HCL [Desyrel] 50 mg PO HS #30 tab 04/25/20 [Rx] Follow up Appointment(s)/Referral(s): [facility] [NON-STAFF] - 1 Week Activity/Diet/Wound Care/Special Instructions: Activity and diet as tolerated. Avoid the use of street drugs and alcohol. Take all medications as prescribed. When you are in need of refills on your medications please contact your medical provider and/or outpatient psychiatrist to have this done. Please go to scheduled outpatient appointment for aftercare treatment. If symptoms return or become worse, call the crisis line at and/or go to the nearest emergency room for evaluation Discharge Disposition: HOME SELF-CARE
--- NOTE | 2020-04-25 11:54 | P.PN ---
Subjective Progress Note Date: 04/25/20 Principal diagnosis: Diagnosis: Psychosis NOS Addendum to discharge note: The patient has been calm and logical for at least 2 days and has a good discharge plan. He says that he has a friend to stay with we contacted the friend. The friend came in and saw him last night and believes the patient has returned to his baseline. We have appointment with the [facility] for follow-up and I gave him 2 months worth of medication to make sure he covers until they can see him. I reviewed with him the need for medication how it works and he was on board with taking that at least for the foreseeable future. He is on Abilify at 15 mg and that seems to be doing the job. He denies any a kathisia constipation dizziness dry mouth blurred vision or tiredness. On mental status exam he is alert oriented to person place time and circumstance cooperative good eye contact and normal response time skate and station normal excellent self care participating well in the program. There is no evidence of racing thoughts or any psychotic responses. He denies any psychotic symptoms Assessment: The patient is stabilized well as a acute single episode with psychosis he knows he needs to be careful and watch for the possibility of bipolar or recurrent psychosis and will work with his outpatient provider to determine at what point medications can be backed off on. Objective - Vital Signs Vital signs: Vital Signs Temp 97.6 F 04/25/20 06:33 Pulse 61 04/25/20 06:33 Resp 17 04/25/20 06:33 BP 126/54 04/25/20 06:33 Pulse Ox 96 04/25/20 06:33 Intake & Output 04/24/20 04/25/20 04/25/20 18:59 06:59 18:59 Weight 83.6 kg - Labs CBC & Chem 7: 04/17/20 04:38 04/17/20 04:38
[2020-04-25 13:32] VITALS: TEMP 97.4
== END 2020-04-25 13:46 | disposition home or self-care (01) | DRG 885 ==
LOC: EC 03:33 → 3MHU 13:02
PROVIDERS: ADMIT Psychiatry & Neurology Psychiatry; ATTEND Psychiatry & Neurology Psychiatry
DX: F20.9 Schizophrenia, unspecified (principal); F41.0 Panic disorder [episodic paroxysmal anxiety]; F10.10 Alcohol abuse, uncomplicated; F12.10 Cannabis abuse, uncomplicated; F17.200 Nicotine dependence, unspecified, uncomplicated; Z91.030 Bee allergy status; Z83.3 Family history of diabetes mellitus; Z88.2 Allergy status to sulfonamides; Z56.0 Unemployment, unspecified; Z87.440 Personal history of urinary (tract) infections
CPT/HCPCS: 36415; 80053; 80306; 80320; 80329; 81003; 83520; 84443; 85025; 96372; 99285

== ENCOUNTER 2025-04-21 09:59 | Emergency (ER) | payer MEDICAID, OTHER ==
[2025-04-21 10:03] VITALS: TEMP 98.2
--- NOTE | 2025-04-21 10:23 | ED ---
General Adult HPI - General Chief complaint: Chest Pain Stated complaint: Chest Pain Time Seen by Provider: 04/21/25 10:00 Source: patient, RN notes reviewed, old records reviewed Mode of arrival: ambulatory Limitations: no limitations - History of Present Illness Initial comments: This is a 29-year-old male who presents to the emergency department stating that he had some sharp pain under his ribs on the left while at work. Patient states he also had some pain in his upper left chest that was sharp in nature and lasted only 1 to 2 seconds. Patient states a little later on he had some tingling in both of his fingertips and decide at this time to come in. Patient states he was quite anxious at this time. Patient denies shortness of breath or difficulty breathing. Patient denies any fever chills or cough. Patient has abdominal pain patient has nausea vomiting diarrhea. Patient denies any dizziness or lightheadedness. Patient denies any swelling to the legs. Calf tenderness. Patient states he went to an urgent care and they wanted him to come to the emergency department get further evaluated. Patient is currently not having any pain - Related Data Previous Rx's Medication Instructions Recorded ARIPiprazole [Abilify] 15 mg PO DAILY #30 tab 04/25/20 traZODone HCL [Desyrel] 50 mg PO HS #30 tab 04/25/20 Allergies Allergy/AdvReac Type Severity Reaction Status Date / Time Sulfa (Sulfonamide Allergy Unknown Verified 04/21/25 10:03 Antibiotics) venom-honey bee Allergy Anaphylaxis Verified 04/21/25 10:03 [bee venom (honey bee)] Review of Systems ROS Statement: Those systems with pertinent positive or pertinent negative responses have been documented in the HPI. ROS Other: All systems not noted in ROS Statement are negative. Past Medical History Additional Past Medical History / Comment(s): anemic History of Any Multi-Drug Resistant Organisms: None Reported Past Surgical History: No Surgical Hx Reported Additional Past Surgical History / Comment(s): Urethral stricture repair Past Psychological History: No Psychological Hx Reported Past Alcohol Use History: None Reported Past Drug Use History: None Reported - Past Family History Mother Family Medical History: Diabetes Mellitus General Exam - General Exam Comments Initial Comments: GENERAL: Patient is well-developed and well-nourished. Patient is nontoxic and well- hydrated and is in no acute distress. ENT: Neck is soft and supple. No significant lymphadenopathy is noted. Oropharynx is clear. Moist mucous membranes. Neck has full range of motion without eliciting any pain. EYES: The sclera were anicteric and conjunctiva were pink and moist. Extraocular movements were intact and pupils were equal round and reactive to light. Eyelids were unremarkable. PULMONARY: Unlabored respirations. Good breath sounds bilaterally. No audible rales rhonchi or wheezing was noted. CARDIOVASCULAR: There is a regular rate and rhythm without any murmurs gallops or rubs. ABDOMEN: Soft and nontender with normal bowel sounds. SKIN: Skin is clear with no lesions or rashes and otherwise unremarkable. NEUROLOGIC: Patient is alert and oriented x3. Cranial nerves II through XII are grossly intact. Motor and sensory are also intact. Normal speech, volume and content. Symmetrical smile. MUSCULOSKELETAL: Normal extremities with adequate strength and full range of motion. No lower extremity swelling or edema. No calf tenderness. LYMPHATICS: No significant lymphadenopathy is noted PSYCHIATRIC: Normal psychiatric evaluation. Limitations: no limitations Course Vital Signs 04/21/25 04/21/25 10:00 12:36 Temperature 98.2 F Pulse Rate 56 L 64 Respiratory 18 20 Rate Blood Pressure 124/76 137/85 O2 Sat by Pulse 99 98 Oximetry Medical Decision Making - Medical Decision Making EKG is interpreted by myself and EKG shows a sinus bradycardia 57 bpm NH interval 162 QRS is 92 QT interval 397 QTc is [address] segment elevation. Patient does have Q waves inferiorly and in precordial leads V5 and V6 Was pt. sent in by a medical professional or institution (, PA, [employer] CREW[employer]BER, urgent care, hospital, or fpc...) When possible be specific @ -No Did you speak to anyone other than the patient for history (EMS, parent, family, police, friend...)? What history was obtained from this source @ -No Did you review nursing and triage notes (agree or disagree)? Why? @ -I reviewed and agree with nursing and triage notes Were old charts reviewed (outside hosp., previous admission, EMS record, old EKG, old radiological studies, urgent care reports/EKG's, fpc records)? Report findings @ -No old charts were reviewed Differential Diagnosis? @ -Differential chest pain EKG interpreted by me (3pts min.). @ -As above X-rays interpreted by me (1pt min.). @ -Chest x-ray shows no acute abnormality CT interpreted by me (1pt min.). @ -None done U/S interpreted by me (1pt. min.). @ -None done What testing was considered but not performed or refused? (CT, X-rays, U/S, labs)? Why? @ -None What meds were considered but not given or refused? Why? @ -None Did you discuss the management of the patient with other professionals (professionals i.e. , PA, [employer] CRE[employer]BER, lab, RT, psych nurse, transition social worker, bilingual speech therapist, teacher, catapult and arresting gear officer, block and case maker)? Give summary @ -I spoke with Dr. Mantilla because of the Q waves inferiorly and in the lateral leads and he looked at the EKG and thought it was a persistent juvenile pattern. Was smoking cessation discussed for >3mins.? @ -No Was critical care preformed (if so, how long)? @ -No Were there social determinants of health that impacted care today? How? (Homelessness, low income, unemployed, alcoholism, drug addiction, transportation, low edu. Level, literacy, decrease access to med. care, alf, rehab)? @ -No Was there de-escalation of care discussed even if they declined (Discuss DNR or withdrawal of care, Hospice)? DNR status @ -No What co-morbidities impacted this encounter? (DM, HTN, Smoking, COPD, CAD, Cancer, CVA, ARF, Chemo, Hep., AIDS, mental health diagnosis, sleep apnea, morbid obesity)? @ -None Was patient admitted / discharged? Hospital course, mention meds given and route, prescriptions, significant lab abnormalities, going to OR and other perti nent info. @ -Patient did not experience any more chest pain or difficulty breathing while in the emergency department. Patient's lab work showed no acute abnormality. EKG showed no acute abnormality. And chest x-ray showed no acute abnormality. Undiagnosed new problem with uncertain prognosis? @ -No Drug Therapy requiring intensive monitoring for toxicity (Heparin, Nitro, Insulin, Cardizem)? @ -No Were any procedures done? @ -No Diagnosis/symptom? @ -Atypical chest pain Acute, or Chronic, or Acute on Chronic? @ -Acute Uncomplicated (without systemic symptoms) or Complicated (systemic symptoms)? @ -Complicated Side effects of treatment? @ -No Exacerbation, Progression, or Severe Exacerbation? @ -No Poses a threat to life or bodily function? How? (Chest pain, [place], [place], pneumonia, PE, COPD, DKA, ARF, appy, cholecystitis, CVA, Diverticulitis, Homicidal, Suicidal, threat to staff... and all critical care pts) @ -No After the patient was discharged I realized I did not give the patient c ardiology follow-up so I called and left a voicemail with the patient's phone indicating that [facility] with [facility]. - Lab Data Result diagrams: 04/21/25 10:29 04/21/25 10:29 Lab Results 04/21/25 04/21/25 04/21/25 Range/Units 10:29 10: 10:29 WBC 6.44 (4.50-10.00) 10*3/uL RBC 5.29 (4.40-5.60) 10*6/uL Hgb 15.7 (13.0-17.0) g/dL Hct 44.4 (39.6-50.0) % MCV 83.9 (80.0-97.0) fL MCH 29.7 (27.0-32.0) pg MCHC 35.4 (32.0-37.0) g/dL Plt Count 231 (140-440) 10*3/uL MPV 9.0 L (9.5-12.2) fL Immature Gran % (Auto) 0.2 % Neutrophils % (Manual) 64 % Lymphocytes % (Manual) 32 % Monocytes % (Manual) 4 % Immature Gran # 0.01 (0.00-0.04) 10*3/uL Neutrophils # (Manual) 4.12 (1.3-7.7) k/uL Lymphocytes # (Manual) 2.06 (1.0-4.8) k/uL Monocytes # (Manual) 0.26 (0-1.0) k/uL Nucleated RBCs 0 (0-0) /100 WBC Manual Slide Review Performed Reactive Lymphocytes Present Sodium 139 (137-145) mmol/L Potassium 4.4 (3.5-5.1) mmol/L Chloride 104 (98-107) mmol/L Carbon Dioxide 27 (22-30) mmol/L Anion Gap 8 mmol/L BUN 10 (9-20) mg/dL Creatinine 0.97 (0.66-1.25) mg/dL Est GFR (CKD-EPI)AfAm >90 (>60 ml/min/1.73 sqM) Est GFR (CKD-EPI)NonAf >90 (>60 ml/min/1.73 sqM) Glucose 101 H (74-99) mg/dL Calcium 9.4 (8.4-10.2) mg/dL Magnesium 2.1 (1.6-2.3) mg/dL Total Bilirubin 0.5 (0.2-1.3) mg/dL AST 40 (17-59) U/L ALT 41 (4-49) U/L Alkaline Phosphatase 40 (38-126) U/L Troponin I <0.012 (0.000-0.034) ng/mL Total Protein 5.7 L (6.3-8.2) g/dL Albumin 3.6 (3.5-5.0) g/dL Disposition Clinical Impression: Atypical chest pain Disposition: HOME SELF-CARE Condition: Good Instructions (If sedation given, give patient instructions): Chest Pain (ED) Is patient prescribed a controlled substance at d/c from ED?: No Referrals: None,Stated [Primary Care Provider] - 1-2 days Time of Disposition: 12:22
[2025-04-21 10:40] LABS: HCT 44.4 % (39.6-50.0); HGB 15.7 g/dL (13.0-17.0); MCH 29.7 pg (27.0-32.0); MCHC 35.4 g/dL (32.0-37.0); MCV 83.9 fL (80.0-97.0); Platelet Count 231 10*3/uL (140-440); RBC 5.29 10*6/uL (4.40-5.60); RDW 12.4 % (11.5-14.5); WBC 6.44 10*3/uL (4.50-10.00)
--- NOTE | 2025-04-21 10:46 | XR ---
Chest, 2 view. CLINICAL INDICATION: Male, 29 years old with history of Chest Pain COMPARISON: None TECHNIQUE: PA and lateral views the chest are obtained. FINDINGS: The lungs are clear and there is no consolidative or interstitial opacity. There is no pleural effusion or pneumothorax. The heart, pulmonary vasculature, mediastinum and rodney appear normal. The osseous structures are intact. IMPRESSION: No significant abnormality seen. No acute cardiopulmonary disease. [facility], , 04/21/2025 10:44 AM
[2025-04-21 10:49] LABS: ALT 41 U/L (4-49); AST 40 U/L (17-59); African American GFR (CKD) >90 (>60 ml/min/1.73 sqM); Albumin 3.6 g/dL (3.5-5.0); Alkaline Phosphatase 40 U/L (38-126); Anion Gap 8 mmol/L; Blood Urea Nitrogen 10 mg/dL (9-20); Calcium 9.4 mg/dL (8.4-10.2); Carbon Dioxide 27 mmol/L (22-30); Chloride 104 mmol/L (98-107); Glucose 101 mg/dL (74-99); Magnesium 2.1 mg/dL (1.6-2.3); Non-African American GFR(CKD) >90 (>60 ml/min/1.73 sqM); Potassium 4.4 mmol/L (3.5-5.1); Sodium 139 mmol/L (137-145); Total Protein 5.7 g/dL (6.3-8.2)
[2025-04-21 11:41] LABS: Lymphocytes # (M) 2.06 k/uL (1.0-4.8); Monocytes # (M) 0.26 k/uL (0-1.0); Neutrophils # (M) 4.12 k/uL (1.3-7.7); Neutrophils % (M) 64 %; Total Cells Counted 100
[2025-04-21 12:38] VITALS: BP 137/85; PULSE 64; RESP 20
== END 2025-04-21 12:37 | disposition home or self-care (01) ==
LOC: EC 09:59
DX: R07.89 Other chest pain (principal); Z88.2 Allergy status to sulfonamides; Z91.030 Bee allergy status
CPT/HCPCS: 36415; 71046; 80053; 83735; 84484; 85025; 93005; 99285